=== PATIENT | male | born 1955 | race Caucasian/White ===

== ENCOUNTER 2017-09-14 14:04 | Emergency (ER) | payer OTHER ==
[~2017-09-14] VITALS: Ht 185.4 cm; Wt 98.0 kg
[~2017-09-14 14:04] MED LIST: CLONIDINE HCL0.1 MG PO; LYRICA100 M1 PO; OXYCODONE HCL10 M2 PO; OXYCONTIN20 M1 PO
--- NOTE | 2017-09-14 18:57 | ED GI/GU/ABDOMINAL COMPLAINT ---
History of Present Illness General Chief Complaint: General Adult Stated Complaint: PT SENT TO HAVE G-TUBE RE-INSERTED Source: patient, family, old records Exam Limitations: no limitations Vital Signs & Intake/Output Vital Signs & Intake/Output Vital Signs Date Time Temp Pulse Resp B/P B/P Pulse O2 O2 Flow FiO2 Mean Ox Delivery Rate 09/16 815 97.6 67 18 117/76 96 Room Air 09/15 06 96.2 67 18 137/86 97 Room Air 09/14 2022 Room Air 09/14 2022 98.6 84 16 141/89 99 Room Air 09/14 1420 96.0 119 18 160/99 97 Room Air ED Intake and Output 09/15 0000 09/14 1200 Intake Total Output Total Balance Patient 216 lb Weight Weight Estimated Measurement Method Allergies Coded Allergies: ramelteon (From [employer]) (Severe, SWELLING 03/30/17) Reconcile Medications Cyclobenzaprine HCl 5 MG TABLET 1 TAB 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 HAS G-TUBE IN PLACE S/P HEAD/NECK RADIATION. ABLE TO TOLERATE PO FLUIDS, USING 2 CANS OF TUBE FEED DAILY FOR SUPPLEMENTATION. Triage Nurses Notes Reviewed? yes Onset: Gradual Duration: hour(s): Timing: single episode today Quality/Severity: moderate HPI: 61-year-old male with history of neck mass/malignancy, chronic back pain presents to emergency department complaining of his G-tube falling out this morning. Patient states he has had G-tube since May 2017, placed by IR, Dr. Funes. Patient states that when he woke up this morning his G-tube had come out on its own. Patient called his doctor to inform them of this complication, they called him back run 1 PM telling him to report to the emergency department. Patient does tolerate food and liquids by mouth as well as medications. Patient is not complaining of any pain swelling or discharge from G-tube site, no abdominal pain. (Hien BOWMAN,Maria Del Rosario Garcia) Triage Nurses Notes Reviewed? yes (Manuel Benavides DO) Past History Travel History Traveled to [place] past 21 day No Medical History Any Pertinent Medical History? 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 No (Maria Del Rosario Woodard) Review of Systems Review of Systems Constitutional: Reports: no symptoms. EENTM: Reports: no symptoms. Respiratory: Reports: no symptoms. Cardiovascular: Reports: no symptoms. GI: Reports: see HPI. Genitourinary: Reports: no symptoms. Musculoskeletal: Reports: no symptoms. Skin: Reports: no symptoms. Neurological/Psychological: Reports: no symptoms. Hematologic/Endocrine: Reports: no symptoms. Immunologic/Allergic: Reports: no symptoms. All Other Systems: Reviewed and Negative (Maria Del Rosario Woodard) Physical Exam Physical Exam General Appearance: well developed/nourished, no apparent distress, alert, awake Head: atraumatic, normal appearance Eyes: Bilateral: normal appearance. Ears, Nose, Throat, Mouth: hearing grossly normal Neck: normal inspection, supple, full range of motion Respiratory: no respiratory distress Gastrointestinal: soft, non-tender, <1cm oriface in mid abdomen, no G tube in place, no swelling, drainage, or tenderness Back: normal inspection, normal range of motion Extremities: normal range of motion Neurologic/Psych: awake, alert, oriented x 3 Skin: intact, normal color, warm/dry Core Measures ACS in differential dx? No Sepsis Present: No Sepsis Focused Exam Completed? No (Maria Del Rosario Woodard) Progress Differential Diagnosis: g-tube dysfunction, cellulitis, gastritis, malignancy Plan of Care: Orders Procedure Date/time Status GASTROSTOMY TUBE CHANGE 09/15 0640 Active Current Medications Sig/Yoanna Start time Last Medication Dose Stop Time Status Admin Dextrose/Sodium 1,000 ML Q13H 09/14 2345 AC Chloride (D5W-1/2 Normal Saline 1000ML) Cyclobenzaprine HCl 5 MG TID 09/14 2199 UNVr 09/14 (Flexeril 5MG Tab) 2218 Oxycodone HCl 40 MG BID 09/14 2199 AC 09/14 (OxyCONTIN) 2218 Pregabalin 100 MG TID 09/14 2199 AC 09/14 (Lyrica) 2218 Clonidine 0.1 MG BID PRN 09/14 2144 AC (Catapres) Oxycodone HCl 10 MG Q6 PRN 09/14 2144 AC 09/15 (Roxicodone) 0610 We attempted replacement of patient's G-tube with the same G-tube, 16 Hungarian. Unable to pass G-tube. Attempts were made with Colbert catheter size is 18, 16, 14. These attempts were performed by myself, Dr. Evans, Dr. Benavides. Unable to pass Colbert catheter. Patient requires IR G-tube placement. Patient agrees to stay tonight in the emergency department pending G-tube placement tomorrow morning. The patient was signed out to Dr. Benavides pending IR G-tube placement. (Maria Del Rosario Woodard) 09/14/2017 11:43:01 PM Patient's hyponatremia by Dr. Benavides. Pending IR placement of G-tube tomorrow. We'll stay in the ER overnight for IV hydration. (Heidi Woods MD) Initial ED EKG: none Hand-Off Endorsed To: Manuel Benavides DO Endorsed Time: 2129 Pending: consult (IR and g tube placement) (Maria Del Rosario Woodard) Hand-Off Endorsed To: Meet Baumann MD Endorsed Time: 07 Pending: consult (Heidi Woods MD) Departure Departure Disposition: HOME OR SELF CARE Condition: Stable Clinical Impression Primary Impression: Gastrostomy tube dysfunction Referrals: Hugh Rhoades MD (PCP/Family) Departure Forms: Customer Survey General Discharge Information (Maria Del Rosario Woodard) Departure Comments 09/14/17 9:40 PM The patient was signed out to me by Radha. He has a pulled G-tube. They were unable to pass a Colbert. The patient will be observed in the emergency department overnight. He will have the G-tube placed by IR in the a.m. 09/14/17 9:41 PM The patient will be signed out to Heidi Woods MD at 11 PM. (Kennedy LANDRY,Manuel Zuniga) Departure Additional Instructions: return if symptoms worsen or for any concerns (Pastor RICHEY,Meet Tom)
[2017-09-14] MEDS ORDERED: OXYCONTIN40 M1 PO (21:40)
[2017-09-14] MEDS ORDERED: CYCLOBENZAPRINE5 M2 PO (21:43)
[2017-09-15 10:10] VITALS: BP 120/80
--- NOTE | 2017-09-15 16:48 | INTERVENTIONAL RADIOLOGY RPT ---
PROCEDURE: Gastrostomy replacement through existing tract under fluoroscopic guidance INDICATIONS: 61-year-old patient with head and neck cancer who finished radiation therapy mid July 2017. The patient had a gastrostomy tube placed for nutritional support. The gastrostomy tube came out yesterday while the patient was sleeping. COMPARISON: Percutaneous gastrostomy tube procedure of 05/27/2017, CT of the chest, abdomen, and pelvis dated 08/19/2017. 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 During this process, the procedure and potential alternatives was explained, along with the intended outcome and benefits. The risks of the procedure, as well as the risk of not doing the procedure, were discussed. The patient was given the opportunity to ask questions regarding the procedure and appeared competent to make medical decisions. A signed consent form which documents this discussion was placed in the medical record. The patient was brought to the interventional radiology suite and a final timeout procedure was performed. The patient was placed on the special procedures table in the supine position. The subxiphoid area and left upper quadrant were sterilely prepped and draped. Maximum sterile barrier technique was maintained throughout the procedure. The exit site was identified. The existing tract was generously anesthetized using 1% lidocaine. A 4 Kosovan dilator was inserted into the tract and contrast was injected opacifying the gastric lumen. A stiff Glidewire was advanced through the dilator into the stomach. Serial dilatations were performed to allow insertion of a 20 Kosovan peel-away sheath. A fresh 16 Kosovan MARTINEZ gastrostomy tube was advanced over the wire through the peel-away sheath into the gastric lumen. The retention balloon was filled with 7 mL of sterile water. Injection of contrast was performed through the tube confirming positioning within the gastric lumen. Slotted dressings were placed around the catheter at the entry site and the retention disc was secured. The patient tolerated the procedure well. There was no evidence of immediate complications. FLUOROSCOPY TIME: 0.7 minutes DAP: 3.4 Gy-cm squared TOTAL CONTRAST USAGE: 20 mL Optiray 320 CONCLUSION: Successful replacement of a 16 Kosovan MARTINEZ gastrostomy tube into the mid body of the stomach through the existing tract under fluoroscopic guidance. The gastrostomy tube may be used starting immediately.
== END 2017-09-15 10:35 ==
LOC: ERH 14:04
DX: K94.23 Gastrostomy malfunction (principal); C49.0 Malignant neoplasm of connective and soft tissue of head, face and neck
CPT/HCPCS: 96360; 96361; 96372; C1894